=== PATIENT | female | born 1965 | race Caucasian/White ===

== ENCOUNTER 2018-11-29 14:26 | Inpatient (IN) | payer OTHER | END 2018-12-04 11:49 | disposition home or self-care (01) | LOC: ED 14:26 → DU 18:12 → ED 14:26 → DU 18:12 → ED 14:26 → DU 18:12 → ED 14:26 → DU 18:12 → ED 14:26 → DU 18:12 → ED 14:26 → DU 18:12 | DX: I21.4 Non-ST elevation (NSTEMI) myocardial infarction (principal); N17.0 Acute kidney failure with tubular necrosis; E87.6 Hypokalemia; R74.0 Nonspecific elevation of levels of transaminase and lactic acid dehydrogenase [LDH]; I10 Essential (primary) hypertension; K43.9 Ventral hernia without obstruction or gangrene; F17.210 Nicotine dependence, cigarettes, uncomplicated; Z59.0 Homelessness; Z68.22 Body mass index [BMI] 22.0-22.9, adult; Z95.1 Presence of aortocoronary bypass graft ==